=== PATIENT | male | born 1990 | race American Indian/Alaskan Native ===

== ENCOUNTER 2019-04-04 12:21 | Emergency (ER) | payer SELFPAY ==
[2019-04-04] MEDS ORDERED: HALDOL IM PRN (12:31)
[2019-04-04] MEDS ORDERED: NACL 0.9% 1000 ML 2,000 ML IV ONE (12:31)
[2019-04-04] MEDS ORDERED: ATIVAN IM PRN (12:31)
--- NOTE | 2019-04-04 12:59 | Emergency Department Report ---
History of Present Illness - General Chief Complaint: Altered Mental Status Stated Complaint: OVERDOSE Time Seen by Provider: 04/04/19 12:24 Source: EMS (verbal report received from EMS.ems notes not available at time of chart dictation), RN notes reviewed Mode of arrival: Stretcher Limitations: Altered Mental Status, Other - History of Present Illness Initial Comments: This is a 28-year-old gentleman. The details of his past medical history are not known to this provider. Patient is sedated after receiving Haldol in the field for acute agitated delirium. History obtained from EMS. As per verbal report from EMS, patient found in a hotel, recurrently, this emergency room his care for other patients who are suspected overdosing. Apparently, the patient may be overdosed on PCP as per EMS. At some point they were contacted for altered mental status and combative behavior. EMS told me that the patient had a convulsive event, uncertain if there was trauma involved, uncertain how long it lasted for. Apparently, the patient was moving 4 extremities spontaneously and vigorously, and was combative, and received Haldol. Currently, the patient is sleeping in the ER, protecting his airway, moving 4 extremity's. No additional history is available at this time. MD Complaint: other -: unknown Intent: other How Overdose Was Discovered: other Treatments Prior to Arrival: other (haldol) - Related Data Allergies Allergy/AdvReac Type Severity Reaction Status Date / Time Unable to Assess Allergy Verified 04/04/19 14:51 ED Review of Systems ROS: Stated complaint: OVERDOSE Other details as noted in HPI Comment: Unobtainable due to pts medical conditions ED Past Medical Hx - Social History Smoking Status: Unknown if ever smoked ED Physical Exam - General Limitations: Altered Mental Status, Other General appearance: in no apparent distress, lethargic - Head Head exam: Present: atraumatic, normocephalic - Eye Eye exam: Present: normal appearance, PERRL - ENT ENT exam: Present: normal exam, mucous membranes moist, normal external ear exam - Neck Neck exam: Present: normal inspection. Absent: tenderness, meningismus - Respiratory Respiratory exam: Present: normal lung sounds bilaterally. Absent: respiratory distress - Cardiovascular Cardiovascular Exam: Present: normal rhythm, tachycardia, normal heart sounds. Absent: systolic murmur, diastolic murmur, rubs, gallop - GI/Abdominal GI/Abdominal exam: Present: soft, normal bowel sounds. Absent: distended, t enderness, guarding, rigid, pulsatile mass - Rectal Rectal exam: Present: deferred - exam: Present: normal inspection, other (chaperoned by joy roberts) External exam: Present: normal external exam - Extremities Exam Extremities exam: Present: normal inspection (there is no clonus. There is no hyperreflexia. Downgoing plantar reflexes bilaterally. Muscular compartments soft.), other (2+ pulses noted in the bilateral upper, lower extremities. Comp artments soft. No long bony tenderness. The pelvis is stable.). Absent: tenderness, pedal edema, joint swelling, calf tenderness - Back Exam Back exam: Absent: tenderness, CVA tenderness (R), CVA tenderness (L), paraspinal tenderness, vertebral tenderness - Neurological Exam Neurological exam: Present: altered, other (detailed neurologic examination not possible secondary to altered mental status) - Psychiatric Psychiatric exam: Present: other (sedated and nonverbal at this time) - Skin Skin exam: Present: warm, dry, intact, normal color. Absent: rash ED Course Vital Signs 04/04/19 04/04/19 04/04/19 12:30 12:37 13:00 Temperature 97.3 F L Pulse Rate 110 H 110 H 101 H Respiratory 20 18 16 Rate Blood Pressure 112/64 112/64 115/68 Blood Pressure 112/64 [Left] O2 Sat by Pulse 95 95 96 Oximetry 04/04/19 04/04/19 04/04/19 13:40 14:00 14:40 Temperature Pulse Rate 81 66 Respiratory 14 13 Rate Blood Pressure 124/71 111/79 Blood Pressure [Left] O2 Sat by Pulse 99 99 99 Oximetry 04/04/19 04/04/19 04/04/19 15:00 15:31 16:00 Temperature Pulse Rate 78 61 94 H Respiratory 18 15 13 Rate Blood Pressure 125/80 128/80 144/81 Blood Pressure [Left] O2 Sat by Pulse 100 99 97 Oximetry 04/04/19 04/04/19 04/04/19 16:30 17:00 17:30 Temperature Pulse Rate 94 H 72 61 Respiratory 14 15 16 Rate Blood Pressure 135/89 138/81 151/92 Blood Pressure [Left] O2 Sat by Pulse 96 97 98 Oximetry 04/04/19 04/04/19 04/04/19 18:00 18:30 19:00 Temperature Pulse Rate 54 L 56 L 89 Respiratory 16 14 16 Rate Blood Pressure 130/76 139/88 149/89 Blood Pressure [Left] O2 Sat by Pulse 99 99 99 Oximetry - Reevaluation(s) Reevaluation #1: 04/04/19 12:58 Differential diagnosis, including but not limited to: Overdose, intracranial lesion, chemical encephalopathy Assessment and plan: 28-year-old gentleman suspected of overdosing on PCP, intention unknown, with reported agitated delirium in the field, chemically D escalated with haloperidol as per EMS protocol, now sedated, sitting on stretcher, protecting airway. Patient placed on a hold, screening laboratory studies, EKG, CT scan of the brain ordered. Reevaluation #2: 04/04/19 14:56 Objective laboratory testing so far unremarkable. CK slightly elevated. IV fluids ordered. Patient continues to protect airway. CT scan of brain negative, x-ray of the chest negative. Reevaluation #3: 04/04/19 15:21 Patient more awake. Sitting up. He knows his name. Still somewhat impaired. Awaiting clinical sobriety. Reevaluation #4: 04/04/19 15:[address] Deonte Hopson to observe and d/c when clinically sober ED Medical Decision Making - Lab Data Result diagrams: 04/04/19 13:09 04/04/19 13:09 Vital Signs 04/04/19 12:37 Temperature 97.3 F L Pulse Rate 110 H Respiratory 18 Rate Blood Pressure 112/64 Blood Pressure 112/64 [Left] O2 Sat by Pulse 95 Oximetry - EKG Data -: EKG Interpreted by Me EKG shows normal: sinus rhythm Rate: normal - EKG Data When compared to previous EKG there are: previous EKG unavailable 04/04/19 14:55 There is no prior EKG available for comparison. This is a sinus rhythm, 99 bpm, normal axis, QTC within normal limits, borderline early repolarization, there is no endorsement of chest pain, the EKG is abnormal, the EKG is not consistent with ST elevation myocardial infarction. - Radiology Data Radiology results: image reviewed interpreted by me: X-ray of the chest is negative for acute disease Critical care attestation.: If time is entered above; I have spent that time in minutes in the direct care of this critically ill patient, excluding procedure time. ED Disposition Clinical Impression: Convulsion, General medical exam Disposition: DC-01 TO HOME OR SELFCARE Is pt being admited?: No Does the pt Need Aspirin: No Condition: Stable Additional Instructions: Do not drive or operate motor vehicles for the next 6 months. Recommend close follow-up with outpatient primary care doctor within the next 3-5 days. Recommend patient not consuming recreational drugs, such as amphetamines, marijuana, or any illegal or recreational drugs. Consumption of recreational and illegal drugs may cause addiction, , disability, paralysis, loss of quality of life. Return to the emergency room by way with projectile vomiting, change in mental status, confusion, inability to tolerate liquid feeds, new, worsening or different symptoms not present on the initial emergency room evaluation. Referrals: [facility] [Provider Group] - 3-5 Days [facility] [Provider Group] - 3-5 Days
--- NOTE | 2019-04-04 13:06 | XRay Report ---
CHEST 1 VIEW INDICATION / CLINICAL INFORMATION: Drug overdose with altered mental status. COMPARISON: None available. FINDINGS: SUPPORT DEVICES: None. HEART / MEDIASTINUM: No significant abnormality. LUNGS / PLEURA: No significant pulmonary or pleural abnormality. No pneumothorax. ADDITIONAL FINDINGS: No significant additional findings. IMPRESSION: No acute pulmonary or pleural abnormality. Signer Name: Kyle Selby MD FACR Signed: 04/04/2019 1:02 PM Workstation Name: [id number]
[2019-04-04 13:47] LABS: Hematocrit 46.8 % (35.5-45.6); Hemoglobin 16.1 gm/dl (11.8-15.2); Mean Corpuscular HGB Conc 34 % (32-34); Mean Corpuscular Volume 94 fl (84-94); Platelet Count 266 K/mm3 (140-440); Red Cell Distribution Width 13.7 % (13.2-15.2)
--- NOTE | 2019-04-04 13:56 | Cat Scan Report ---
CT head/brain wo con INDICATION: Altered mental status.. TECHNIQUE: Routine CT head without contrast. All CT scans at this location are performed using CT dos e reduction for ALARA by means of automated exposure control. COMPARISON: None. FINDINGS: BRAIN / INTRACRANIAL CONTENTS: No acute hemorrhage, mass effect, midline shift, or hydrocephalus. No appreciable acute large territorial or lacunar infarct. No chronic infarct or focal atrophy. Normal b rain volume and ventricular/sulcal size for age. ORBITS: No significant abnormality of visualized orbits. SINUSES / MASTOIDS: Mild mucosal thickening in the left maxillary sinus. ADDITIONAL FINDINGS: None. IMPRESSION: 1. No acute intracranial abnormality. Signer Name: Blade Hyde MD Signed: 04/04/2019 1:51 PM Workstation Name: [id number]
[2019-04-04 13:58] LABS: INR 1.85 (0.87-1.13)
[2019-04-04 14:09] LABS: Alanine Aminotransferase 24 units/L (7-56); BUN/Creatinine Ratio 9; Blood Urea Nitrogen 12 mg/dL (9-20); Calcium 9.4 mg/dL (8.4-10.2); Hemolysis Index 20
[2019-04-04] MEDS ORDERED: NACL 0.9% 1000 ML 1,000 ML ONE (14:38)
[2019-04-04 15:41] LABS: INR 0.88 (0.87-1.13)
[2019-04-04 15:51] LABS: Partial Thromboplastin Time 27.3 Sec. (24.2-36.6)
[2019-04-04 16:15] LABS: Bilirubin,Urine NEG (Negative); Blood,Urine SM (Negative); Color,Urine Yellow (Yellow); Mucus,Urine FEW /HPF; Protein,Urine <15 mg/dL mg/dL (Negative); Urobilinogen,Urine < 2.0 mg/dL (<2.0)
[2019-04-04 16:17] LABS: Cannabinoid Screen,Urine PRESUMPTIVE NEGATIVE; Cocaine Screen,Urine PRESUMPTIVE NEGATIVE; Methadone Screen,Urine PRESUMPTIVE NEGATIVE; Opiate Screen,Urine PRESUMPTIVE NEGATIVE
[2019-04-04 16:51] LABS: Amphetamine Screen,Urine PRESUMPTIVE POSITIVE; Benzodiazepines Screen,Urine PRESUMPTIVE POSITIVE
[2019-04-04 19:23] VITALS: BP 149/89
== END 2019-04-04 19:23 | disposition home or self-care (01) ==
LOC: ED 12:21
DX: T43.4X1A Poisoning by butyrophenone and thiothixene neuroleptics, accidental (unintentional), initial encounter (principal); R41.82 Altered mental status, unspecified; R56.9 Unspecified convulsions; Y92.89 Other specified places as the place of occurrence of the external cause
CPT/HCPCS: 36415; 70450; 71045; 80053; 80164; 80178; 80307; 81001; 82550; 83735; 85027; 85610; 85730; 93005; 93010; 96360; 99285; J7030; 80320; G0480